=== PATIENT | female | born 1995 | race Caucasian/White ===

== ENCOUNTER 2018-04-02 22:23 | Emergency (ER) | payer OTHER ==
[2018-04-02 23:06] VITALS: BP 109/76
[2018-04-03] MEDS ORDERED: ONDANSETRON ODT 4 MG TAB (6 TAB/ER DISP) PO PRN (00:33)
--- NOTE | 2018-04-03 00:33 | ER Document Report ---
ED GI/ - General Chief Complaint: Diarrhea Stated Complaint: ADBOMINAL PAIN Time Seen by Provider: 04/03/18 00:33 Mode of Arrival: Ambulatory Information source: Patient Notes: Pt is a 22 year old female who presents to the ER today for watery diarrhea that started after she ate [employer] for dinner tonight and went back to work. Pt states that she was told by [employer] where she works that she would need to go the ER and get a work note for them because she couldnt stop running to the bathroom to have diarrhea. She denies nausea/vomiting, admits to some mild abdominal cramping but no other pain. TRAVEL OUTSIDE OF THE [place] IN LAST 30 DAYS: No - Related Data Allergies/Adverse Reactions: No Known Allergies Allergy (Verified 04/03/18 02:12) Past Medical History - General Information source: Patient - Social History Smoking Status: Never Smoker Family History: Reviewed & Not Pertinent Review of Systems - Review of Systems Constitutional: No symptoms reported EENT: No symptoms reported Cardiovascular: No symptoms reported Respiratory: No symptoms reported Gastrointestinal: See HPI Genitourinary: No symptoms reported Female Genitourinary: No symptoms reported Musculoskeletal: No symptoms reported Skin: No symptoms reported Hematologic/Lymphatic: No symptoms reported Neurological/Psychological: No symptoms reported Physical Exam - Vital signs Vitals: Temp Pulse Resp BP Pulse Ox 99.6 F 75 18 109/76 99 04/02/18 23:04 04/02/18 23:04 04/02/18 23:04 04/02/18 23:04 04/02/18 23:04 - Notes Notes: PHYSICAL EXAMINATION: GENERAL: in no acute distress. HEAD: Atraumatic, normocephalic. EYES: Pupils equal round and reactive to light, extraocular movements intact, sclera anicteric, conjunctiva are normal. NECK: Normal range of motion, supple without lymphadenopathy LUNGS: CTAB and equal. No wheezes rales or rhonchi. HEART: Regular rate and rhythm without murmurs ABDOMEN: Soft, no tenderness. No guarding, no rebound BACK: no vertebral tenderness, normal ROM GI/: no CVA tenderness EXTREMITIES: Normal range of motion, no pitting edema. No cyanosis. NEUROLOGICAL: Cranial nerves grossly intact. Normal sensory/motor exams. SKIN: Warm, Dry, normal turgor, no rash Course - Re-evaluation Re-evalutation: 04/03/18 01:54 pt does not want anything for diarrhea as she states it's getting better already. She declines labwork or further workup today. - Vital Signs Vital signs: Temp Pulse Resp BP Pulse Ox 99.6 F 75 18 109/76 99 04/02/18 23:04 04/02/18 23:04 04/02/18 23:04 04/02/18 23:04 04/02/18 23:04 Discharge - Discharge Clinical Impression: Diarrhea Qualifiers: Diarrhea type: unspecified type Qualified Code(s): R19.7 - Diarrhea, unspecified Condition: Stable Disposition: HOME, SELF-CARE Instructions: Diarrhea, Nonspecific ([facility]) Additional Instructions: Return immediately for any new or worsening symptoms. Follow up with primary care provider, call tomorrow to make followup appointment. Forms: Return to Work
== END 2018-04-03 00:35 | disposition home or self-care (01) ==
LOC: ER 22:23
DX: R19.7 Diarrhea, unspecified (principal); R10.9 Unspecified abdominal pain
CPT/HCPCS: 99283

== ENCOUNTER 2018-09-29 20:37 | Emergency (ER) | payer OTHER ==
[2018-09-29] MEDS ORDERED: LIDOCAINE 1% INJ-PF (10 MG/ML) 30 ML SDV INJ ONE (21:19)
[2018-09-29] MEDS ORDERED: DIPH/PERTUSS(ACELL)/TETANUS VAC/PF 0.5 ML SYR (>=10YO) IM ONE (21:28)
--- NOTE | 2018-09-29 21:28 | ER Document Report ---
ED General - General Chief Complaint: Laceration Stated Complaint: FINGER PAIN Time Seen by Provider: 09/29/18 21:10 Notes: Patient is a 23-year-old female who presents to the emergency department with a cut to her right index finger. She was meal prepping at home and cut her finger on a can of beans. She has not taken any medication for the pain. She says it does hurt to bend her finger and has complaints of numbness above the injury. She does not know when her last tetanus shot was, therefore she came to the emergency department to get a tetanus shot and possibly have her finger repaired. She has no past medical history. TRAVEL OUTSIDE OF THE [place] IN LAST 30 DAYS: No - Related Data Allergies/Adverse Reactions: No Known Allergies Allergy (Verified 04/03/18 02:12) Past Medical History - Social History Smoking Status: Never Smoker Frequency of alcohol use: None Drug Abuse: None Lives with: Spouse/Significant other Family History: Reviewed & Not Pertinent Renal/ Medical History: Denies: Hx Peritoneal Dialysis Review of Systems - Review of Systems Notes: REVIEW OF SYSTEMS: CONSTITUTIONAL : Denies recent illness. Denies recent unintentional weight loss. Denies fever, chills, or sweats. EENT: Denies eye, ear, throat, or mouth pain, discharge, or symptoms. Denies nasal or sinus congestion. CARDIOVASCULAR: Denies chest pain. RESPIRATORY: Denies shortness of breath, cough, congestion, difficulty breathing , or wheezing. GASTROINTESTINAL: Denies nausea, vomiting, and diarrhea. Denies abdominal pain. Denies constipation. GENITOURINARY: Denies difficulty urinating, burning, blood in urine, urgency or frequency. MUSCULOSKELETAL: Denies neck and back pain. Denies joint pain or swelling. SKIN: See HPI HEMATOLOGIC : Denies easy bruising or bleeding. LYMPHATIC: Denies swollen, painful, enlarged glands. NEUROLOGICAL: Denies no numbness or tingling denies weakness. Denies headache. Denies altered mental status. Denies alteration in speech. PSYCHIATRIC: Denies stress, anxiety, alteration in sleep patterns, or depression. All other systems reviewed and negative. Physical Exam - Vital signs Vitals: Temp Pulse Resp BP Pulse Ox 98.0 F 81 16 138/84 H 99 09/29/18 20:47 09/29/18 20:47 09/29/18 20:47 09/29/18 20:47 09/29/18 20:47 - Notes Notes: PHYSICAL EXAMINATION: GENERAL: Appears well, healthy, well-nourished, no acute distress. HEAD: Normocephalic, atraumatic. EYES: PERRL, conjunctiva normal, all extraocular movements intact, sclera nonicteric ENT: Moist mucous membranes. NECK: Supple, no noticeable swelling, redness, rash. Normal range of motion. LUNGS: Equal breath sounds bilaterally and clear to auscultation. No wheezes rales or rhonchi. CARDIOVASCULAR: S1-S2, regular rate, regular rhythm. Radial pulses 2+, normal. ABDOMEN: Normoactive bowel sounds. Soft, nontender, no guarding, no rebound tenderness, and no masses palpated. EXTREMITIES: Normal strength and range of motion, no pitting or edema. No cyanosis. NEUROLOGICAL: Moves all extremities upon command. Strength 5/5 in all extremities. PSYCH: Normal mood, normal affect. SKIN: Laceration to right second digit on the dorsal aspect the PIP joint. warm , dry. No rash, lesions, ulcerations noted. Normal skin turgor. Course - Re-evaluation Re-evalutation: 09/29/18 23:00 X-rays have been reviewed. There is no acute fracture. Based off patient's physical exam, I do not suspect she has a tendon injury. She does have numbness to the distal end of her index finger, distal to the laceration. Patient tolerated sutures well. Verbal discharge instructions were given to the patient. She states understanding. She is stable for discharge. - Vital Signs Vital signs: Temp Pulse Resp BP Pulse Ox 98.0 F 90 16 127/78 H 98 09/29/18 20:47 09/29/18 23:00 09/29/18 23:00 09/29/18 23:00 09/29/18 23:00 Procedures - Laceration/Wound Repair Right Dorsal 2nd digit Wound length (cm): 2 Wound's Depth, Shape: Superficial Laceration pre-procedure: Sterile PPE donned, Shur-Clens applied Anesthetic type: 1% Lidocaine Volume Anesthetic (mLs): 2 Wound explored: Clean, No foreign body removed Irrigated w/ Saline (mLs): 20 Wound Repaired With: Sutures Suture Size/Type: 5:0, Nylon Number of Sutures: 2 Layer Closure?: No Post-procedure NV exam normal: Yes - Does continue to complain of numbness to the distal end of her finger. Complications: No Discharge - Discharge Clinical Impression: Laceration Condition: Stable Disposition: HOME, SELF-CARE Additional Instructions: You have been seen in the emergency department for a cut on her finger. 2 stitches have been placed to keep your cut together. You may see your primary care doctor or return to the emergency department to have your stitches removed in 7-10 days. Keep the area clean and dry. Avoid soaking your hand for long periods of time. You have also been prescribed some antibiotics, to prevent infection. Please take all your medication as prescribed. You may take Motrin and Tylenol every 6 hours as needed for the pain. If you you develop a fever greater than 100.4 F or have any concerns that are worrisome to you, please return to the emergency department. Prescriptions: Cephalexin Monohydrate [Keflex 500 mg Capsule] 500 mg PO Q6H 5 Days capsule
[2018-09-29] MEDS ORDERED: ACETAMINOPHEN 325 MG TABLET PO ONE (21:29)
--- NOTE | 2018-09-29 22:00 | RADIOLOGY REPORT (SQ) ---
EXAM DESCRIPTION: XR FINGERS COMPLETED DATE/TME: 09/29/2018 21:23 CLINICAL HISTORY: 23 years, Female, laceration COMPARISON: None. NUMBER OF VIEWS: 3 TECHNIQUE: Three views of the second digit were obtained in AP, lateral and oblique projection. LIMITATIONS: None. FINDINGS: No fracture or dislocation. Soft tissue irregularity at the level of the lateral second digit proximal interphalangeal joint compatible with the patient's history of laceration. The joint spaces are preserved. IMPRESSION: Soft tissue irregularity compatible with the patient's history of laceration. 2011 [employer] [facility] [employer]- All Rights Reserved
[2018-09-29] MEDS ORDERED: IBUPROFEN 600 MG TABLET PO ONE (23:06)
[2018-09-30 02:56] VITALS: BP 127/78
== END 2018-09-29 23:20 | disposition home or self-care (01) ==
LOC: ER 20:37
PROC: 0HQFXZZ Repair Right Hand Skin, External Approach (ICD-10-PCS; principal; 2018-09-29)
DX: S61.210A Laceration without foreign body of right index finger without damage to nail, initial encounter (principal); W26.8XXA Contact with other sharp object(s), not elsewhere classified, initial encounter; Y93.G1 Activity, food preparation and clean up; Y92.009 Unspecified place in unspecified non-institutional (private) residence as the place of occurrence of the external cause; M79.644 Pain in right finger(s); R20.0 Anesthesia of skin
CPT/HCPCS: 99283; 90471; 73140; 90715; 12001; J3490

== ENCOUNTER 2018-10-06 13:42 | Emergency (ER) | payer OTHER ==
[2018-10-06 14:03] VITALS: BP 123/70
--- NOTE | 2018-10-06 14:40 | ER Document Report ---
HPI - HPI Patient complains to provider of: Suture removal Time Seen by Provider: 10/06/18 14:33 Onset: Last week Onset/Duration: Better Pain Level: 1 Context: Patient states that she cut her right second finger on a can on September 29. Patient had 2 sutures placed and is here for suture removal. Patient denies any change in range of motion. Exacerbated by: Movement Relieved by: Denies Similar symptoms previously: No Recently seen / treated by doctor: Yes - ROS ROS below otherwise negative: Yes Systems Reviewed and Negative: Yes All other systems reviewed and negative - CONSTITUTIONAL Constitutional: DENIES: Fever - NEURO Neurology: DENIES: Weakness - MUSCULOSKELETAL Musculoskeletal: REPORTS: Extremity pain - DERM Skin Color: Normal Skin Problems: Laceration Past Medical History - General Information source: Patient - Social History Smoking Status: Never Smoker Frequency of alcohol use: None Drug Abuse: None Family History: Reviewed & Not Pertinent Renal/ Medical History: Denies: Hx Peritoneal Dialysis Psychiatric Medical History: Reports: Hx Depression Surgical Hx: Negative - Immunizations Immunizations up to date: Yes Vertical Provider Document - CONSTITUTIONAL Agree With Documented VS: Yes Exam Limitations: No Limitations General Appearance: WD/WN, No Apparent Distress - INFECTION CONTROL TRAVEL OUTSIDE OF THE [place] IN LAST 30 DAYS: No - HEENT HEENT: Atraumatic, Normocephalic - NECK Neck: Lymphadenopathy-Right - RESPIRATORY Respiratory: No Respiratory Distress - CARDIOVASCULAR Pulses: Normal: Radial - MUSCULOSKELETAL/EXTREMETIES Musculoskeletal/Extremeties: MAEW, FROM - NEURO Level of Consciousness: Awake, Alert, Appropriate Motor/Sensory: No Motor Deficit - DERM Integumentary: Warm, Dry, Laceration - Sutured 1 cm laceration to radial aspect of right second finger with 2 intact sutures, wound edges approximated, no erythema Course - Vital Signs Vital signs: Temp Pulse Resp BP Pulse Ox 98.9 F 87 15 123/70 98 10/06/18 14:01 10/06/18 14:01 10/06/18 14:01 10/06/18 14:01 10/06/18 14:01 Discharge - Discharge Clinical Impression: Encounter for removal of sutures Condition: Stable Disposition: HOME, SELF-CARE Instructions: Care of Steri-Strip Closure ([facility]), Suture Removal Additional Instructions: Return immediately for any new or worsening symptoms Followup with your primary care provider, call tomorrow to make a followup appointment Referrals: [facility] [Provider Group] - Follow up as needed
== END 2018-10-06 14:49 | disposition home or self-care (01) ==
LOC: ER 13:42
DX: S61.210D Laceration without foreign body of right index finger without damage to nail, subsequent encounter (principal); W26.8XXD Contact with other sharp object(s), not elsewhere classified, subsequent encounter